=== PATIENT | male | born 1960 | race Caucasian/White ===

== ENCOUNTER 2018-09-25 12:31 | Inpatient (IN) ==
[2018-09-25 12:53] LABS: BASO# 0.02 X1000 (0.0-0.2); BASO% 0.4 % (0.0-0.8); EOS# 0.02 X1000 (0.0-0.7); EOS% 0.4 % (0.0-10.0); HEMOGLOBIN 12.1 g/dL (14.0-18.0); IMM GRAN# 0.01 X1000 (0.0-0.04); IMM GRAN% 0.2 % (0.0-0.5); LYMPH# 0.54 X1000 (1.2-3.4); LYMPH% 9.5 % (20.5-51.1); MCH 32.5 PG (27-31); MCHC 34.6 g/dL (33-37); MCV 94.1 FL (81-99); MONO# 0.44 X1000 (0.11-0.59); MONO% 7.7 % (1.7-9.3); MPV 9.9 FL (7.4-10.4); NEUT# 4.66 X1000 (1.4-6.5); NEUT% 81.8 % (42.2-75.2); PLT 244 X1000 (130-400); RBC 3.72 XMIL (4.7-6.1); RDW 12.7 % (11.5-14.5); WBC 5.69 X1000 (4.8-10.8)
[2018-09-25] MEDS ORDERED: NS 1,000 ML IV ONE ×4 (12:54→17:43)
[2018-09-25 13:19] LABS: BILIRUBIN URINE NEGATIVE (NEGATIVE); BLOOD URINE 4+ (NEGATIVE); CLARITY CLEAR (CLEAR); COLOR YELLOW; KETONE URINE NEGATIVE (NEGATIVE); LEUKOCYTES URINE TRACE (NEGATIVE); NITRITE URINE NEGATIVE (NEGATIVE); PROTEIN URINE 2+(100 mg/dL) mg/dL (NEGATIVE); UROBILINOGEN URINE NORMAL
[2018-09-25 13:25] LABS: URINE BACTERIA 1+ /HFP; URINE EPITHELIAL CELLS >10 /HPF (<10); URINE RBC <10 /HPF (<10); URINE WBC <10 /HPF (<10)
--- NOTE | 2018-09-25 13:25 | EKG Report ---
Test Performed on : 09/25/2018 12:40:43 PM Test Reason : syncope Blood Pressure : / mmHG Vent. Rate : 077 BPM Atrial Rate : 077 BPM P-R Int : 206 ms QRS Dur : 078 ms QT Int : 378 ms P-R-T Axes : 074 032 -09 degrees QTc Int : 427 ms Normal sinus rhythm. Septal infarct , age undetermined T wave abnormality, consider inferior ischemia Abnormal ECG No previous ECGs available Unconfirmed Result
[2018-09-25 13:26] LABS: URINE CAST NONE SEEN /LPF; URINE CRYSTAL NONE SEEN /HPF; URINE SOURCE CLEAN CATCH; URINE YEAST NONE SEEN /HPF
[2018-09-25 13:28] LABS: CHLORIDE 95 mmol/L (98-107); SODIUM 135 mmol/L (136-145); TCO2 21 mmol/L (25-35)
[2018-09-25 13:29] LABS: AGAP 19; BUN 45 mg/dL (8-22); COSMO 287; CREATININE 5.8 mg/dL (0.7-1.2); GLUCOSE 195 mg/dL (70-104)
[2018-09-25 13:30] LABS: ALBUMIN 4.6 g/dL (3.5-5.0); ALKALINE PHOSPHATASE 89 U/L (32-122); CALCIUM 8.6 mg/dL (8.8-10.2); TOTAL PROTEIN 7.2 g/dL (6.3-8.3)
[2018-09-25 13:34] LABS: CK INDEX 2.2 (0.0-2.5); CK-MB 8.07 ng/mL (0.0-5.0)
[2018-09-25 13:39] LABS: GOT 55 U/L (10-34); GPT 63 U/L (10-44)
--- NOTE | 2018-09-25 16:07 | PROVIDER DOCUMENTATION ---
This chart was entered by Eileen Joseph Scribe, acting as scribe for Rahat Graham MD. HPI-Syncope/Dizziness - General Chief Complaint: Heat Related Stated Complaint: SYNCOPE Time Seen by Provider: 09/25/18 12:43 Source: patient, EMS Allergies/Adverse Reactions: Patient Allergies Allergy/AdvReac Type Severity Reaction Status Date / Time No Known Allergies Allergy Verified 09/25/18 12:38 Home Medications: Home Medication List Medication Instructions Recorded Confirmed Last Taken Type Lisinopril/Hydrochlorothiazide 1 tab PO DAILY 09/25/18 09/25/18 Unknown History [Lisinopril-Hctz 20-25 mg Tab] - History of Present Illness-Syncope/Dizzy Nature of Presenting Problem: 57 y/o male presents to ED with episode of near syncope onset just prior to arrival. 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 Pt states he felt hot/weak/fatigued, experienced SOB and white spots in his vision, and collapsed. Pt denies loss of consciousness or hitting his head. EMS reports they gave 1L of fluids en route to ED. Pt is alert and oriented. If witnessed syncope, by whom?: coworkers Prior Episodes: reports: remote history Onset/Duration: reports: just prior to arrival Timing: reports: improving Position/Activity at time of episode: reports: standing Symptoms prior to episode: reports: visual disturbance, other (weakness, fatigue, SOB) Context: reports: collapsed, almost passed out. denies: lost consciousness Loss of Consciousness: no loss of consciousness Location of injury. (If syncope resulted in an injury.): reports: none Current Symptoms: reports: none/feels normal Recently Seen Here or By Another Healthcare Provider: No Review of Systems - Adult - REVIEW OF SYSTEMS - ADULT Constitutional: reports: fatique. denies: chills, fever Eyes: reports: other (white spots in vision). denies: eye pain Ears, Nose, Mouth & Throat: reports: no symptoms reported Cardiovascular: denies: chest pain, palpitations Respiratory: reports: shortness of breath. denies: cough Gastrointestinal: denies: abdominal pain, diarrhea, nausea, vomiting Genitourinary: reports: no symptoms reported Musculoskeletal: denies: back pain, joint pain Integumentary: reports: no symptoms reported Neurological: reports: other (near syncope; weakness). denies: dizziness/vertigo, seizure Psychiatric: reports: no symptoms reported Endocrine: reports: no symptoms reported Hematologic/Lymphatic: reports: no symptoms reported Allergic/Immunologic: reports: no symptoms reported All Other Systems: Reviewed and Negative Past History - Adult - PAST MEDICAL HISTORY-ADULT Review of Records: reports: Old Records Reviewed, Nursing Assessment Review, Medications Reviewed Major Childhood Illnesses: reports: denies history Cardiovascular: reports: HTN Musculoskeletal: reports: chronic pain (back) - PRIOR SURGERIES/PROCEDURES Surgical/Procedure History: reports: none - IMMUNIZATION STATUS Childhood Immunizations: See Nurse Assessment Flu Vaccine: See Nurse Assessment - FAMILY HISTORY Family History: reviewed, not pertinent - SOCIAL HISTORY Smoking: quit greater than 1 year Substance Use: marijuana Alcohol Use Frequency: every day Living Situation: family Physical Exam-General - PHYSICAL EXAM-ADULT Initial Vital Signs Reviewed: Yes - CONSTITUTIONAL General Appearance: appears well, alert, no apparent distress - EYES Eyes: PERRL/EOMI, pink conjunctivae - HEAD, EARS, NOSE, MOUTH & THROAT HENMT: normocephalic/atraumatic, moist mucous membranes, normal ENT inspection - NECK Neck: non-tender, full range of motion - RESPIRATORY Respiratory: chest non-tender, lungs clear, normal breath sounds - CARDIOVASCULAR Cardiovascular: normal peripheral pulses, regular rate, rhythm - GASTROINTESTINAL (ABDOMEN) Abdominal Exam: normal bowel sounds, non tender, soft - MUSCULOSKELETAL Back Exam: normal inspection, no CVA tenderness Extremity: normal range of motion, non-tender - SKIN Integumentary: normal color, warm/dry - 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 as tested (Intact), grossly normal, no motor/sensory deficits - PSYCHIATRIC Psych/Mental Status: normal mood/affect, normal thought content, normal thought process, oriented x 3 Progress - PLAN OF CARE/RESULTS Progress/Plan/Lab Results: Vital Signs - 8 hr 09/25/18 12:31 09/25/18 12:51 09/25/18 14:23 Temperature 97.3 F L Pulse Rate 76 Pulse Rate [Sitting] 83 61 Pulse Rate [Standing] 90 77 Pulse Rate [Supine] 64 60 Respiratory Rate 20 Blood Pressure 131/078 Blood Pressure [Sitting] 113/66 121/79 Blood Pressure [Standing] 105/71 111/72 Blood Pressure [Supine] 101/69 99/66 O2 Sat by Pulse Oximetry 99 Laboratory Results - last 24 hr 09/25/18 09/25/18 09/25/18 12:45 12:45 12:45 WBC 5.69 RBC 3.72 L Hgb 12.1 L Hct 35.0 L MCV 94.1 MCH 32.5 H MCHC 34.6 RDW Std Deviation 12.7 Plt Count 244 MPV 9.9 Immature Gran % (Auto) 0.2 Neut % (Auto) 81.8 H Lymph % (Auto) 9.5 L [place] % (Auto) 7.7 Eos % (Auto) 0.4 Baso % (Auto) 0.4 Immature Gran # (Auto) 0.01 Neut # (Auto) 4.66 Lymph # (Auto) 0.54 L [place] # (Auto) 0.44 Eos # (Auto) 0.02 Baso # (Auto) 0.02 Sodium 135 L Potassium 4.0 Chloride 95 L Carbon Dioxide 21 L Anion Gap 19 BUN 45 H Creatinine 5.8 H Estimated GFR/1.73 m2 BUN/Creatinine Ratio 8 Glucose 195 H Calculated Osmolality 287 Calcium 8.6 L Magnesium Total Bilirubin 0.70 AST 55 H ALT 63 H Alkaline Phosphatase 89 Creatine Kinase 359 H Creatine Kinase Index 2.2 CK-MB (CK-2) 8.07 H Total Protein 7.2 Albumin 4.6 Globulin 3.0 Albumin/Globulin Ratio 2.0 Urine Source Urine Color Urine Clarity Urine pH Ur Specific [place] Urine Protein Urine Ketones Urine Blood Urine Nitrite Urine Bilirubin Urine Urobilinogen Urine Microscopic RBC Urine WBC Urine Microscopic WBC Ur Epithelial Cells Urine Crystals Urine Bacteria Urine Casts Urine Yeast Urine Glucose 09/25/18 09/25/18 09/25/18 12:45 12:55 15:12 WBC RBC Hgb Hct MCV MCH MCHC RDW Std Deviation Plt Count MPV Immature Gran % (Auto) Neut % (Auto) Lymph % (Auto) [place] % (Auto) Eos % (Auto) Baso % (Auto) Immature Gran # (Auto) Neut # (Auto) Lymph # (Auto) [place] # (Auto) Eos # (Auto) Baso # (Auto) Sodium 134 L Potassium 4.0 Chloride 100 Carbon Dioxide 21 L Anion Gap 13 BUN 44 H Creatinine 4.9 H Estimated GFR/1.73 m2 12 BUN/Creatinine Ratio 9 Glucose 74 D Calculated Osmolality 278 Calcium 7.9 L Magnesium 2.1 Total Bilirubin AST ALT Alkaline Phosphatase Creatine Kinase Creatine Kinase Index CK-MB (CK-2) Total Protein Albumin Globulin Albumin/Globulin Ratio Urine Source CLEAN CATCH Urine Color YELLOW Urine Clarity CLEAR Urine pH 5.0 Ur Specific [place] 1.020 Urine Protein 2+(100 mg/dL) A Urine Ketones NEGATIVE Urine Blood 4+ Urine Nitrite NEGATIVE Urine Bilirubin NEGATIVE Urine Urobilinogen NORMAL Urine Microscopic RBC <10 Urine WBC TRACE A Urine Microscopic WBC <10 Ur Epithelial Cells >10 A Urine Crystals NONE SEEN Urine Bacteria 1+ Urine Casts NONE SEEN Urine Yeast NONE SEEN Urine Glucose 1+(100 mg/dL) A Orders Category Date Time Status Orthostatic Vital Signs NOW Care 09/25/18 12:46 Active Saline Loc NOW Care 09/25/18 12:39 Active BASIC METABOLIC PANEL [CHEM] Stat Lab 09/25/18 15:12 Completed CBC WITH DIFF [HEME] Stat Lab 09/25/18 12:45 Completed CK PROFILE [SP CHEM] Stat Lab 09/25/18 12:45 Completed CMP [COMPREHENSIVE METABOLIC PANEL] [CHEM] Stat Lab 09/25/18 12:45 Completed MAGNESIUM [CHEM] Stat Lab 09/25/18 12:45 Completed URINE CULTURE [RM] Routine Lab 09/25/18 13:26 Received ua [URINALYSIS PL W/POSS RFLX CULT] [URINALYSIS] Stat Lab 09/25/18 12:55 Completed 0.9% Sodium Chloride Inj [Ns] 1,000 ml Med 09/25/18 12:54 Discontinued IV 999 mls/hr 0.9% Sodium Chloride Inj [Ns] 1,000 ml Med 09/25/18 14:30 Discontinued IV 999 mls/hr EKG [EKG] Stat Ther 09/25/18 12:39 Draft Result Diagrams: 09/25/18 12:45 09/25/18 15:12 - EKG 1 Time of EKG reading by physician:: 12:40 EKG Read and Signed by:: Rahat Graham EKG Interpretation (*Must complete 3 of following elements*): Abnormal Rate: 77 Rhythm: NSR [place]: normal QRS: other (septal infarct) [place] Interval: normal ST Wave: non-specific ST changes (consider inferior ischemia) - CONSULTS/PCP/HOSPITALIST Notification #1 *Consult/PCP/Hospitalist*: Dr. Benítez Time Discussed: 16:19 Reason/Comments: Near syncope; dehydration Consult Disposition: Admit Departure - Departure Date of Disposition Decision: 09/25/18 Time of Disposition Decision: 16:44 DIAGNOSIS: Dehydration Disposition: ADMITTED INPATIENT 09 Certified Medical Emergency: Emergent Condition: Stable Referrals and Follow-Ups: None,PCP [Primary Care Provider] - - Critical Care Note This patient required my direct & personal management of CC.: No Attestation - Physician/ CHAITANYA Attestation Patient care was provided by Advanced Practice Provider:: No The physician spent face to face time with patient:: Yes Advanced Practice Provider documentation review:: Supervising physician onsite and consulted in the evaluation and care of this patient. The physician did have a face to face encounter with the patient. This chart was documented by the indicated scribe, (Eileen Joseph Scribe) and accurately reflects the services I performed and decisions made by me, Rahat Graham MD, as attested by the provider's signature.
[2018-09-25 16:09] LABS: CALCIUM 7.9 mg/dL (8.8-10.2); CREATININE 4.9 mg/dL (0.7-1.2)
[2018-09-25 17:41] LABS: UR AMPHETAMINES QUAL NONE DETECTED (NONE DETECT); UR BARBITUATES QUAL NONE DETECTED (NONE DETECT); UR BENZODIAZEPIN QUAL NONE DETECTED (NONE DETECT); UR CANNABINOIDS QUAL PRESUMPTIVE POSITIVE (NONE DETECT); UR COCAINE QUAL NONE DETECTED (NONE DETECT); UR METHADONE QUAL NONE DETECTED (NONE DETECT); UR METHAMPHETAMINE QUAL NONE DETECTED (NONE DETECT); UR OPIATES QUAL NONE DETECTED (NONE DETECT); UR OXYCODONE QUAL NONE DETECTED (NONE DETECT); UR PCP QUAL NONE DETECTED (NONE DETECT); UR PROPOXYPHENE QUAL NONE DETECTED (NONE DETECT); UR TCA QUAL NONE DETECTED (NONE DETECT)
[2018-09-25] MEDS ORDERED: ZOFRAN IV PRN (17:43)
[2018-09-25] MEDS ORDERED: TYLENOL PO PRN (17:43)
[2018-09-25] MEDS ORDERED: SODIUM CHLORIDE 0.9% INJ SCH (17:43)
[2018-09-25] MEDS ORDERED: ATIVAN IV PRN (17:43)
[2018-09-25] MEDS: PEPCID IV SCH (18:45)
[2018-09-25 19:34] LABS: UR CREAT RANDOM 215.7 mg/dL (14-26); UR PROT RANDOM 75.1 mg/dL
--- NOTE | 2018-09-25 20:08 | Diag Imaging Result Doc PS360 ---
EXAM: CT ABD/PELVIS W/ORAL CONT ONLY INDICATION: hernia, inguinal left TECHNIQUE: This exam was performed using automated exposure control, adjustment of mA or kV according to patient size, and/or use of iterative reconstruction technique. COMPARISON: None. FINDINGS: The liver, gallbladder, spleen, pancreas, adrenal glands, kidneys, and urinary bladder are unremarkable. There is a prominent left inguinal hernia that contains a loop of the sigmoid colon. There is no colonic wall thickening to indicate ischemia and there is no evidence of obstruction. There is very subtle mesenteric fat opacity at the base of the hernia suggesting some degree of venous congestion. The appendix is normal. The remainder of the GI tract is essentially unremarkable. No free abdominal fluid or free gas is identified. IMPRESSION: Prominent left inguinal hernia containing a loop of the sigmoid colon but with no colonic wall thickening and no obstruction. There is very subtle mesenteric haziness at the base of the hernia suggesting some degree of venous congestion. Electronically signed by Sly Cadet 09/25/2018 8:05 PM
--- NOTE | 2018-09-25 21:38 | HISTORY AND PHYSICAL ---
CHIEF COMPLAINT: Weakness, feeling like he is going to pass out. 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 Yesterday, it sounds like he was 10 or 12 hours in the heat. 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 Apparently, about a week or two ago, he came into the ER and he had to be given some fluids at that time. He sees Dr. Schmidt in [place] who is planning an outpatient stress test. He has an inguinal hernia which he is supposed to get repaired, but he does not want to pursue that right now because of needing to work. In any case, he came in with dizziness. He actually got 1 L fluid on the round from the ER. He does drink regularly, he says a pint a day. He does not necessarily get withdrawal symptoms if he does not drink. He uses marijuana regularly. Other than that, he just has the hypertension. In any case, patient was evaluated. He was found to be in acute renal failure secondary to early rhabdomyolysis, head stroke, exhaustion, and he was admitted for treatment. PAST MEDICAL HISTORY: Hypertension, otherwise negative. PAST SURGICAL HISTORY: Denies. SOCIAL HISTORY: He does not smoke currently, although he smoked in the past. 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 He drinks about a pint of alcohol a day. He uses marijuana daily. FAMILY HISTORY: No significant issues in first-degree relatives. He has CAD in a grandfather; uncle with CVA. ALLERGIES: No known drug allergies. REVIEW OF SYSTEMS: No weight loss. No nausea, vomiting, diarrhea. No hematochezia. No melena. He reports normal bowel movements. PHYSICAL EXAMINATION: VITAL SIGNS: Blood pressure is 128/83, heart rate 77, respiratory rate of 12, temperature 98.6 degrees, 97% on room air. He was not orthostatic. GENERAL: A well developed male in no acute distress. HEAD: Normocephalic, atraumatic. EYES: Pupils equal, round, reactive to light. Sclerae injected. NECK: Supple. EARS, NOSE, THROAT: He is edentulous. He has increased hypertrophy of buccal mucosa. CARDIOVASCULAR: Regular rate and rhythm. No murmurs, gallops, or rubs. PULMONARY: Bilateral breath sounds. Clear to auscultation. GI: Soft, nontender, nondistended. Bowel sounds are positive. EXTREMITIES: No clubbing or cyanosis. No peripheral edema. NEUROLOGIC: Nonfocal. He was a bit tremulous, especially with movement. MUSCULOSKELETAL: Was about 4 to 5 in all 4 extremities. LABORATORY DATA: White count 5, hemoglobin and hematocrit 12 and 35, platelets 244,000. Sodium 134, BUN and creatinine of 44 and 4.9. AST and ALT of 55 and 63. Creatine kinase 359. Urine was negative except for some proteinuria. ASSESSMENT: A 57-year-old male with essentially history of acute kidney injury, likely due to heat exhaustion, dehydration, possible early rhabdomyolysis. PROBLEM LIST: 1. Acute kidney injury. Will continue vigorous hydration. His rhabdomyolysis is not profound, so I will not do bicarbonate infusion at this time. We will repeat his CPK tomorrow. Avoid nephrotoxic drugs. Check urine electrolytes. Hold angiotensin converting enzyme inhibitor. Hold diuretic. I encouraged alcohol moderation, if not cessation, just because of its myotoxicity, and we will repeat labs in the morning. 2. Alcohol abuse. We will use Ativan as needed. We will schedule Librium if he has any issues. I am just concerned about Librium in the setting of his acute kidney injury, and we will follow. 3. Left inguinal hernia. I am having difficulty reducing it. He does have pain, a lot of pain with palpation. I do not get a sense he is obstructed. He is not throwing up. The rest of his abdominal exam is benign, but we will go ahead and CT with oral contrast and make sure there are no issues there, and we will get a surgical consult. 4. Elevated liver enzymes, likely related to alcohol use. We will screen for hepatitis and monitor his levels. DISPOSITION: Pending clinical status. Hopefully discharge in the next 24 hours if no other issues there. cc: Aniket Benítez MD
--- NOTE | 2018-09-26 03:14 | GENERAL SURGERY CONSULTATION ---
DATE: 09/25/2018 HISTORY OF PRESENT ILLNESS: This is a 57-year-old gentleman known to me who was seen a couple months ago regarding left inguinal hernia. He elected to not pursue repair. 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 Found to be in acute kidney injury, consistent with dehydration and overexertion. He has been admitted, feels much better. MEDICAL HISTORY: Hypertension, chronic pain which he treats with marijuana. SURGICAL HISTORY: None. SOCIAL HISTORY: History of smoking, but quit. Uses marijuana and alcohol daily. FAMILY HISTORY: Reviewed. He is . REVIEW OF SYSTEMS: Ten point negative. PHYSICAL EXAMINATION: General: He is afebrile, pulse 98, blood pressure 142/80, most recent oxygen saturation is 100 percent. General: He is alert, in no acute distress. HEENT: No scleral icterus. No cervical mass. Cardiovascular: Normal rate. Pulmonary: No increased work of breathing. Abdomen: Soft. Integument: Warm and Dry. Genitourinary: External genitalia is normal. There is a reducible left inguinal hernia. Psychiatric: Appropriate affect. Neurologic: No gross deficits. Peripheral vascular: No lower extremity edema. LABS: White count 5, hematocrit 35. Creatinine is up to 4.9. CK was 359. Albumin is 4.6. Urinalysis shows protein, trace white blood cells, urine creatinine was high at 215. UDS positive for THC. CT scan shows left inguinal hernia containing a loop of sigmoid colon. ASSESSMENT AND PLAN: A 57-year-old gentleman with dehydration related to over-exertion and has a reducible left inguinal hernia, it is soft. He has no GI complaints. We will observe for now and let him get over his acute issue. I have encouraged him to follow up with me for elective repair, as discussed previously. We will follow along. cc: Ángel Crawford MD
[2018-09-26] MEDS: PEPCID IV SCH (05:40)
[2018-09-26 06:24] LABS: BASO# 0.01 X1000 (0.0-0.2); BASO% 0.2 % (0.0-0.8); EOS# 0.04 X1000 (0.0-0.7); EOS% 0.9 % (0.0-10.0); HEMATOCRIT 30.9 % (42.0-52.0); HEMOGLOBIN 10.3 g/dL (14.0-18.0); IMM GRAN# 0.01 X1000 (0.0-0.04); IMM GRAN% 0.2 % (0.0-0.5); LYMPH% 27.3 % (20.5-51.1); MCH 31.6 PG (27-31); MCHC 33.3 g/dL (33-37); MCV 94.8 FL (81-99); MONO# 0.63 X1000 (0.11-0.59); MONO% 14.4 % (1.7-9.3); PLT 220 X1000 (130-400); RBC 3.26 XMIL (4.7-6.1); RDW 12.6 % (11.5-14.5); WBC 4.39 X1000 (4.8-10.8)
[2018-09-26 06:58] LABS: ALBUMIN 3.7 g/dL (3.5-5.0); CALCIUM 8.1 mg/dL (8.8-10.2); CREATININE 2.6 mg/dL (0.7-1.2); DIRECT BILIRUBIN 0.2 mg/dL (0.00-0.20); POTASSIUM 3.6 mmol/L (3.5-5.1); TOTAL BILIRUBIN 0.6 mg/dL (0.20-1.00); TOTAL PROTEIN 5.6 g/dL (6.3-8.3)
--- NOTE | 2018-09-26 13:34 | Diag Imaging Result Doc PS360 ---
EXAM: CHEST-2 VIEWS HISTORY: hypoxia TECHNIQUE: Chest two views COMPARISON: None. FINDINGS: The lungs are well expanded. The heart is not enlarged. The vessels are not distended. There are no infiltrates. No pleural effusions. IMPRESSION: No acute abnormality. Electronically signed by Fernando Parikh 09/26/2018 1:32 PM
[2018-09-26] MEDS: NS 1,000 ML IV SCH (18:17)
--- NOTE | 2018-09-26 19:56 | PROGRESS NOTE ---
DATE: 09/26/2018 SUBJECTIVE: Patient has no major complaints. LABORATORY DATA: White count is down to 4, H and H 10 and 30, platelets 220. Creatinine down to 2.6. CPK down to 246. PROBLEM LIST: 1. Acute kidney injury due to heat stroke and early rhabdomyolysis. We will continue intravenous fluids; somehow they got discontinued in transfer. Continue to monitor. 2. Alcohol abuse. He seems to be doing fine from that standpoint. 3. Left inguinal hernia which is reducible. Will follow up with Surgery as an outpatient. Appreciate their input as far as surgical correct. 4. Elevated liver enzymes likely from chronic alcohol use. We will continue to monitor. He is doing very well and he looks almost completely different as far as his ability to get up and around. He seems much better. Anticipate discharge tomorrow if stable. cc: Aniket Benítez MD
[2018-09-27 06:17] LABS: HEMATOCRIT 29.7 % (42.0-52.0); HEMOGLOBIN 9.8 g/dL (14.0-18.0); MCH 31.5 PG (27-31); MCV 95.5 FL (81-99); MPV 10.2 FL (7.4-10.4); RBC 3.11 XMIL (4.7-6.1); RDW 12.4 % (11.5-14.5); WBC 4.95 X1000 (4.8-10.8)
[2018-09-27] MEDS: NS 1,000 ML IV SCH ×2 (06:32→10:08)
[2018-09-27 06:34] LABS: AGAP 9; BUN 27 mg/dL (8-22); CALCIUM 8.1 mg/dL (8.8-10.2); CHLORIDE 109 mmol/L (98-107); COSMO 285; CREATININE 1.2 mg/dL (0.7-1.2); ESTIMATED GFR > 60; GLUCOSE 99 mg/dL (70-104); POTASSIUM 3.3 mmol/L (3.5-5.1); SODIUM 140 mmol/L (136-145); TCO2 23 mmol/L (25-35)
[2018-09-27] MEDS ORDERED: PRILOSEC PO SCH (07:00)
[2018-09-27 08:09] LABS: HEPATITIS PROFILE ACUTE SEE COMMENTS
[2018-09-27] MEDS ORDERED: KLOR-CON PO ONE (11:13)
[2018-09-27 15:55] VITALS: BP 143/86
--- NOTE | 2018-09-27 16:29 | DISCHARGE SUMMARY ---
ADMISSION DATE: 09/25/2018 DISCHARGE DATE: 09/27/2018 DISCHARGE DIAGNOSES: 1. Acute kidney injury related to dehydration and early rhabdomyolysis. 2. History of alcohol use. 3. Left inguinal hernia. 4. Elevated liver enzymes likely related to chronic alcohol. 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 He works multiple hours in the heat and gets very tired. He apparently had an episode about a week prior to admission that required IV fluids. He does drink up to a pint of alcohol a day. He is on lisinopril and hydrochlorothiazide. His initial creatinine was around 5.8 and after fluids had decreased to 4.9. After further fluids, it was down to 2.6 and on discharge is 1.2. CPKs are only mildly elevated 200 to 300. He did have a left inguinal hernia. It was painful to touch but it was reducible and it was not obstructed per CT. Dr. Crawford evaluated the patient, recommended outpatient treatment. The patient was not interested in pursuing inpatient treatment. We had a prolonged discussion about avoiding overheating and moderating alcohol intake and patient was discharged on the in stable condition. Follow up with Dr. Schmidt in 1 week. He was due for an outpatient stress test and echocardiogram. We did do the echocardiogram while he was in the hospital because he had reportedly some episodes of passing out, although they could be related to these other issues. TIME SPENT: 32 minutes. cc: Indio Schmidt MD
--- NOTE | 2018-09-29 15:35 | ECHO REPORT ---
ORDER DATE: 09/26/2018 MEASUREMENTS: 1. Septal thickness 1.04. 2. Left ventricular internal diameter in diastole 4.61. 3. Left ventricular posterior wall thickness 1.03. 4. Aortic root 3.7. 5. Left atrium 4.0. SUMMARY: 1. Fair quality study. 2. Aortic valve demonstrates mild sclerosis, and is probably trileaflet with adequate opening on 2-dimensional images. Peak gradient across the aortic valve is 11 mmHg. There is mild aortic regurgitation. Mitral, tricuspid, and pulmonic valves are without evidence of structural abnormality with trace mitral regurgitation and mild tricuspid regurgitation. Estimated systolic PA pressure by Doppler is 35 mmHg. The aortic root is normal size. 3. Normal left ventricular dimensions demonstrated. Estimated left ventricular ejection fraction appears to be at least 60%. No regional wall motion abnormalities are evident. Left atrium is borderline enlarged. Right atrium, right ventricle are normal in size with normal right ventricular systolic function. 4. No pericardial effusion. 5. Appearance of inferior vena cava suggests normal central venous pressure. CONCLUSIONS: 1. Fair quality study. 2. Mild aortic valve sclerosis without stenosis with mild aortic regurgitation. 3. Mild tricuspid regurgitation with estimated systolic PA pressure 35 mmHg. 4. Normal left ventricular systolic function without wall motion abnormality evident. 5. Borderline left atrial enlargement. cc: MD Aniket Sainz MD
== END 2018-09-27 16:15 | disposition home or self-care (01) | DRG 683 ==
LOC: SUPCPDRO → P.ED 12:31 → P.MEDSURG 17:17
PROVIDERS: ATTEND Internal Medicine
CPT/HCPCS: 71020; 71046; 74176; 80048; 80053; 80074; 80076; 80104; 80301; 80305; 81001; 82550; 82553; 82570; 83735; 84156; 84300; 85025; 85027; 87088; 93005; 93306; 96360; 99285; A9270; G0431; G0434; G0477; J2060; J7030; S0028